=== PATIENT | female | born 1995 | race Caucasian/White ===

== ENCOUNTER 2022-06-05 12:44 | Emergency (ER) | payer OTHER ==
[~2022-06-05] VITALS: Ht 160 cm; Wt 72.6 kg
[2022-06-05 13:49] VITALS: BP 106/54
--- NOTE | 2022-06-05 13:59 | NUR ---
PT AMB TO BED 7.
[2022-06-05] MEDS ORDERED: ONDANSETRON 4 MG ODT PO ONE (14:20)
--- NOTE | 2022-06-05 14:20 | NUR ---
Female Anthropometrist accompanied female patient for Rectal Exam.
--- NOTE | 2022-06-05 14:26 | NUR ---
27 y/o female bib self for rectal bleeding, abdominal pain and nausea x yesterday. Patient denies any fever, chills or SOB. Patient "blames her tap water for making her sick." Patient has 5/10 dull abdominal pain. Patient denies vomiting or hemmorhoids. Medical History: Anxiety, Bipolar NKDA
[2022-06-05] MEDS ORDERED: LOPE-289 PO (14:36)
[2022-06-05] MEDS ORDERED: ONDA8TAB87 PO (14:36)
[2022-06-05 14:57] VITALS: BP 102/72
--- NOTE | 2022-06-05 14:57 | NUR ---
Patient discharged with v/s stable. Written and verbal after care instructions given. Patient alert, oriented and verbalized understanding of instructions. Ambulatory with steady gait. All questions addressed prior to discharge. ID band removed. Patient advised to follow up with PMD. Rx of Zofran and Imodium given. Opportunity to ask questions provided and answered.
--- NOTE | 2022-06-05 14:58 | NUR ---
The patient's care was reviewed and supervised by Simona Ballard RN.
== END 2022-06-05 14:57 | disposition home or self-care (01) ==
LOC: MED 12:44
DX: N93.9 Abnormal uterine and vaginal bleeding, unspecified (principal)
CPT/HCPCS: 99283; Q0162